=== PATIENT | female | born 1965 | race Hispanic/Latino ===

== ENCOUNTER 2023-10-25 08:08 | Emergency (ER) | payer BC ==
[~2023-10-25] VITALS: Ht 149.9 cm; Wt 79.4 kg
[2023-10-25 08:17] VITALS: BP 182/77; PULSE 88; RESP 16; TEMP 97.8; O2SAT 98
[2023-10-25] MEDS ORDERED: PRED5TAB PO (08:42)
[2023-10-25] MEDS ORDERED: LORA10TA7 PO (08:43)
[2023-10-25] MEDS: PREDNISOLONE 15 MG/5 ML SOLN PO SCH (08:47)
== END 2023-10-25 08:59 | disposition home or self-care (01) ==
LOC: EDH 08:08
DX: R22.9 Localized swelling, mass and lump, unspecified (principal); T45.0X5A Adverse effect of antiallergic and antiemetic drugs, initial encounter; I10 Essential (primary) hypertension; Z88.0 Allergy status to penicillin; Z88.5 Allergy status to narcotic agent; Z88.8 Allergy status to other drugs, medicaments and biological substances; Z90.49 Acquired absence of other specified parts of digestive tract; Z98.890 Other specified postprocedural states; Y92.89 Other specified places as the place of occurrence of the external cause